=== PATIENT | female | born 1965 | race Caucasian/White ===

== ENCOUNTER → 2017-10-04 | Outpatient (CLI) | payer BC | LOC: MC.RAD 08:20 | DX: Z12.31 Encounter for screening mammogram for malignant neoplasm of breast (principal) ==

== ENCOUNTER 2017-12-24 22:54 | Emergency (ER) | payer BC ==
[~2017-12-24] VITALS: Ht 170.2 cm; Wt 72.7 kg
[2017-12-25] MEDS ORDERED: NORCO 325 MG-51 TAB PO (00:01)
[2017-12-25] MEDS ORDERED: VALIUM 2MG T2 MG/TAB PO (00:01)
[2017-12-25 01:13] VITALS: TEMP 97.4
[2017-12-25 04:00] VITALS: BP 93/50; PULSE 48
== END 2017-12-25 04:00 | disposition home or self-care (01) ==
LOC: COL.ER 22:54
DX: M54.42 Lumbago with sciatica, left side (principal); Z90.710 Acquired absence of both cervix and uterus; X50.1XXA Overexertion from prolonged static or awkward postures, initial encounter
CPT/HCPCS: J1170; J1885; J2060; J7030

== ENCOUNTER → 2018-12-19 | Outpatient (CLI) | payer BC ==
[~2018-12-19] MED LIST: NORCO 325 MG-51 TAB PO; VALIUM 2MG T2 MG/TAB PO
== END ==
LOC: MC.RAD 15:42
DX: Z12.31 Encounter for screening mammogram for malignant neoplasm of breast (principal)

== ENCOUNTER → 2019-12-27 | Outpatient (CLI) | payer BC | LOC: MC.RAD 10:53 | DX: Z12.31 Encounter for screening mammogram for malignant neoplasm of breast (principal); Z68.25 Body mass index [BMI] 25.0-25.9, adult ==

== ENCOUNTER → 2020-02-20 | Outpatient (CLI) | payer BC | LOC: ZCOL.LAB 16:12 | DX: U07.1 COVID-19 (principal) ==

== ENCOUNTER → 2021-01-07 | Outpatient (CLI) | payer BC | LOC: MC.RAD 12:55 | DX: Z12.31 Encounter for screening mammogram for malignant neoplasm of breast (principal) ==

== ENCOUNTER → 2022-01-22 | Outpatient (CLI) | payer BC | LOC: MC.RAD 13:55 | DX: Z12.31 Encounter for screening mammogram for malignant neoplasm of breast (principal) ==

== ENCOUNTER → 2024-03-15 | Outpatient (CLI) | payer BC | LOC: MC.RAD 07:26 | DX: Z12.31 Encounter for screening mammogram for malignant neoplasm of breast (principal) ==